=== PATIENT | male | born 1950 | race African-American/Black ===

== ENCOUNTER 2018-04-24 11:23 | Emergency (ER) | payer MEDICARE, OTHER ==
[~2018-04-24] VITALS: Ht 188 cm; Wt 113.6 kg
[~2018-04-24 11:23] MED LIST: ASPI325T6 PO; ASPIRIN 81M81 MG/TA2 PO; CEPHALEXIN500 M1 PO; GRX VITAMIN E1000 IU TP; HYZAAR 25 MG-101 TAB PO; LIPITOR20 MG PO; LOPRESSOR 550 MG/TAB PO; MULTI VITAMINS1 TAB PO; PREVAGEN PO; THE MEDICINE S200 M2 PO; TOPROL XL 50MG50 MG PO; VITAMIN B COMPL1 T16 PO; VITAMIN D1000 IU PO; VITAMIN E 400 U4001 PO; VITAMIN E1000 U/CAP PO; ZYLOPRIM 100MG100 MG PO; ZYRTEC 10MG10 MG PO
[2018-04-24 11:36] VITALS: TEMP 98.8
[2018-04-24] MEDS ORDERED: HCTZ 25MG TAB25 MG PO (12:28)
[2018-04-24 12:55] LABS: ALANINE AMINOTRANSFERASE 24 U/L (21-72); ALBUMIN 4.6 gm/dL (3.5-5.0); ALCOHOL(ethanol),MEDICAL 18 mg/dL; ALKALINE PHOSPHATASE 77 U/L (50-136); ANION GAP 15 mmol/L (7-16); AST,SGOT 40 U/L (15-37); BILIRUBIN,TOTAL 0.6 mg/dL (0.0-1.0); BLOOD UREA NITROGEN 16 mg/dL (9-20); CARBON DIOXIDE 24 mmol/L (22-30); CHLORIDE 103 mmol/L (98-107); CREATININE, serum 1.19 mg/dL (0.66-1.25); GLUCOSE 77 mg/dL (74-106); LIPASE 50 U/L (23-300); POTASSIUM 3.9 mmol/L (3.4-5.0); SODIUM 141 mmol/L (137-145); TOTAL PROTEIN 8.2 gm/dL (6.4-8.2)
[2018-04-24 13:08] LABS: ACETAMINOPHEN < 10 ug/mL (10-30); SALICYLATE < 1.0 mg/dL
[2018-04-24 13:09] LABS: BASO % 0.6 % (0.0-2.0); EOS % 0.5 % (0-4.0); GRAN # 3.2 (1.4-6.5); GRAN % 52.2 % (42.2-75.2); HEMATOCRIT 46.1 % (42.0-52.0); HEMOGLOBIN 15.5 g/dl (13.5-18.0); LYMPH # 2.5 (1.2-3.4); LYMPH % 39.9 % (20.0-51.0); MEAN CELL VOLUME 94 fl (80.0-100.0); MEAN CORPUSCULAR HEMOGLOBIN 31 pg (27.0-31.0); MEAN CORPUSCULAR HGB CONC 34 g/dl (33.0-37.0); MEAN PLATELET VOLUME 10.2 fl (7.4-10.4); MONO # 0.4 (0.1-0.6); MONO % 6.6 % (1.7-9.3); PLATELET COUNT 324 K/mm3 (130-400); RED BLOOD COUNT 4.93 M/mm3 (4.20-5.60); REDCELL DISTRIBUTION WIDTH-CV 14.3 % (11.5-14.5)
[2018-04-24 13:10] LABS: PROLACTIN 7.3 ng/mL (3.7-17.9)
[2018-04-24 13:19] LABS: COLLECTION METHOD CLEAN CATCH
[2018-04-24 13:25] LABS: TSH w REFLEX 0.763 uIU/mL (0.465-4.680)
[2018-04-24 13:30] LABS: MUCOUS Present /lpf; PH 5 (5-8); SQUAMOUS EPITHELIAL 0-2 /hpf; URINE APPEARANCE Clear; URINE BACTERIA None Seen /hpf; URINE BILIRUBIN Negative (NEGATIVE); URINE BLOOD Negative (NEGATIVE); URINE COLOR Yellow; URINE GLUCOSE Negative (NEGATIVE); URINE KETONE Trace (NEGATIVE); URINE LEUKOCYTE ESTERASE Negative (NEGATIVE); URINE NITRATE Negative (NEGATIVE); URINE PROTEIN(semi-quant) Negative (NEGATIVE); URINE RBC 0-2 /hpf; URINE UROBILINOGEN Negative (NEGATIVE)
[2018-04-24 14:05] LABS: TRICYCLIC ANTIDEPRESS URINE NEGATIVE
[2018-04-24 14:19] VITALS: BP 159/103; PULSE 75
== END 2018-04-24 14:20 | disposition home or self-care (01) ==
LOC: COL.ER 11:23
PROVIDERS: Emergency Medicine
DX: R53.1 Weakness (principal); I10 Essential (primary) hypertension; R53.81 Other malaise
CPT/HCPCS: C9113; J2405; J7030

== ENCOUNTER 2019-07-10 10:35 | Emergency (ER) | payer MEDICARE, OTHER ==
[~2019-07-10] VITALS: Ht 188 cm; Wt 101.8 kg
[~2019-07-10 10:35] MED LIST changes: +HCTZ 25MG TAB25 MG PO
[2019-07-10 10:41] VITALS: TEMP 97.3
[2019-07-10 11:07] LABS: BASO # 0.1 (0.0-0.2); EOS # 0.1 (0.0-0.7); EOS % 2.2 % (0-4.0); GRAN # 2.2 (1.4-6.5); GRAN % 44.2 % (42.2-75.2); HEMATOCRIT 42.8 % (42.0-52.0); HEMOGLOBIN 14.2 g/dl (13.5-18.0); LYMPH # 2.1 (1.2-3.4); LYMPH % 42.6 % (20.0-51.0); MEAN CELL VOLUME 99 fl (80.0-100.0); MEAN CORPUSCULAR HEMOGLOBIN 33 pg (27.0-31.0); MEAN CORPUSCULAR HGB CONC 33 g/dl (33.0-37.0); MEAN PLATELET VOLUME 9.3 fl (7.4-10.4); MONO # 0.5 (0.1-0.6); MONO % 9.8 % (1.7-9.3); PLATELET COUNT 300 K/mm3 (130-400); RED BLOOD COUNT 4.32 M/mm3 (4.20-5.60)
[2019-07-10 11:17] LABS: ALANINE AMINOTRANSFERASE 10 U/L (21-72); ALBUMIN 4.7 gm/dL (3.5-5.0); ALKALINE PHOSPHATASE 72 U/L (50-136); ANION GAP 9 mmol/L (7-16); AST,SGOT 59 U/L (15-37); BILIRUBIN,TOTAL 0.8 mg/dL (0.0-1.0); BLOOD UREA NITROGEN 14 mg/dL (9-20); C-REACTIVE PROTEIN < 0.5 mg/dL (0.0-0.9); CALCIUM 9.6 mg/dL (8.4-10.2); CARBON DIOXIDE 33 mmol/L (22-30); CHLORIDE 102 mmol/L (98-107); CREATININE, serum 1.26 (0.66-1.25); GLUCOSE 88 mg/dL (74-106); LIPASE 75 U/L (23-300); POTASSIUM 3.7 mmol/L (3.4-5.0); SODIUM 144 mmol/L (137-145); TOTAL PROTEIN 8.3 gm/dL (6.4-8.2)
[2019-07-10] MEDS ORDERED: TOPROL XL200 MG PO (11:23)
[2019-07-10] MEDS ORDERED: THE MEDICINE S200 M2 PO (11:23)
[2019-07-10 12:25] VITALS: BP 155/87; PULSE 65
== END 2019-07-10 12:27 | disposition home or self-care (01) ==
LOC: COL.ER 10:35
PROVIDERS: Family Medicine
DX: K43.6 Other and unspecified ventral hernia with obstruction, without gangrene (principal); I10 Essential (primary) hypertension; M10.9 Gout, unspecified
CPT/HCPCS: J2270; J2405; J7030; Q9967

== ENCOUNTER 2019-07-30 08:40 | Day surgery (SDC) | payer MEDICARE, OTHER ==
[2019-07-30] VITALS (7 sets, daily range): BP systolic 122–153; BP diastolic 70–91; PULSE 56–81; TEMP 97.4–98.1
[~2019-07-30] VITALS: Ht 188 cm; Wt 96.6 kg
[~2019-07-30 08:40] MED LIST changes: +TOPROL XL200 MG PO
--- NOTE | 2019-07-30 09:35 | NUR ---
TO RM AT 056- CALL LIGHT IN REACH AT BEDSIDE.
[2019-07-30] MEDS ORDERED: NORCO 325 MG-51 TAB PO (13:18)
--- NOTE | 2019-07-30 13:40 | NUR ---
TO RM 6 PER CART FROM PACU. DROWSY, BUT ANSWERS QUESTIONS COHERENTLY. AT BEDSIDE. THREE BANDAIDES OVER ABDOMENT ARE CLEAN DRY INTACT. BINDER ON OVER DRESSINGS. PATIENT BELTCHED A FEW TIME. C/O PAIN "TOLERABLE AT THIS TIME"
--- NOTE | 2019-07-30 14:00 | NUR ---
MORE AWAKE AND TALKING TO . RECEIVED WATER AND TAKING SIPS.
--- NOTE | 2019-07-30 14:15 | NUR ---
C/O PAIN INCREASING 10/26
--- NOTE | 2019-07-30 14:30 | NUR ---
C/O PAIN 10/26 RECEIVED NORCO 5MG 2 TAB RECEIVED SPRTIE AND JOSE ENRIQUEERS
--- NOTE | 2019-07-30 14:45 | NUR ---
PATIENT STATED NO CHANGE IN PAIN RECEIVED CRANBERRY JUICE.
--- NOTE | 2019-07-30 15:15 | NUR ---
ATE CRACKERS AND FINISHED JUICE, SPRITE AND ONE CUP OF WATER. AMBULATED TO BATHROOM. VOIDED AND AMBULATED BACK TO BED. OFFERED PATIENT TO LAY BACK DOWN OR HE COULD GO HOME. PATIENT STATED HE FELT LIKE GOING HOME.
--- NOTE | 2019-07-30 15:30 | NUR ---
AND PATIENT RECEIVED DISCHARGE INSTRUCTIONS AND VERBALIZED UNDERSTANDING. DISCONTINUED IV AND INT- CATHETER INTACT. ASSISTING PATIENT DRESSED.
--- NOTE | 2019-07-30 15:45 | NUR ---
AFTER GETTING INTO WC TO GO HOME, PATIENT STATED HE FELT WARM. OFFERED PATIENT TO LAY BACK DOWN AND REST A LITTLE LONGER. PATIENT STATED HE WAS OK AND WANTED TO GO HOME.
--- NOTE | 2019-07-30 16:07 | NUR ---
DISCHARGED PER WC BY NURSING STAFF TO PRIVATE CAR IN CARE OF SUZIE
== END 2019-07-30 16:09 | disposition home or self-care (01) ==
LOC: SDCO 08:40
DX: K43.6 Other and unspecified ventral hernia with obstruction, without gangrene (principal); I10 Essential (primary) hypertension; E78.00 Pure hypercholesterolemia, unspecified; Z88.8 Allergy status to other drugs, medicaments and biological substances; I25.10 Atherosclerotic heart disease of native coronary artery without angina pectoris; M10.9 Gout, unspecified
CPT/HCPCS: C1781; J0690; J1100; J1885; J2405; J2704; J3010; J7120

== ENCOUNTER 2021-04-21 17:57 | Emergency (ER) | payer MEDICARE, OTHER ==
[~2021-04-21] VITALS: Ht 188 cm; Wt 102.3 kg
[~2021-04-21 17:57] MED LIST changes: +NORCO 325 MG-51 TAB PO
[2021-04-21 18:01] VITALS: TEMP 98.1
[2021-04-21 19:46] LABS: BASO % 0.5 % (0.0-2.0); EOS # 0.1 K/mm3 (0.0-0.7); EOS % 0.7 % (0-4.0); GRAN # 5.2 K/mm3 (1.4-6.5); GRAN % 62.3 % (42.2-75.2); HEMATOCRIT 39.8 % (42.0-52.0); HEMOGLOBIN 13.5 g/dl (13.5-18.0); LYMPH # 2.4 K/mm3 (1.2-3.4); LYMPH % 28.5 % (20.0-51.0); MEAN CELL VOLUME 96 fl (80.0-100.0); MEAN CORPUSCULAR HEMOGLOBIN 33 pg (27.0-31.0); MEAN CORPUSCULAR HGB CONC 34 g/dl (33.0-37.0); MEAN PLATELET VOLUME 9.6 fl (7.4-10.4); MONO # 0.6 K/mm3 (0.1-0.6); MONO % 7.4 % (1.7-9.3); PLATELET COUNT 269 K/mm3 (130-400); RED BLOOD COUNT 4.13 M/mm3 (4.20-5.60); REDCELL DISTRIBUTION WIDTH-CV 13.3 % (11.5-14.5)
[2021-04-21 19:54] LABS: INR 1.1 (0.8-3.0); PROTHROMBIN TIME 12.7 SECONDS (9.7-12.8)
[2021-04-21 19:56] LABS: PARTIAL THROMBOPLASTIN TIME 34.8 SECONDS (26.0-37.0)
[2021-04-21 20:04] LABS: CALCIUM 9.4 mg/dL (8.4-10.2); CREATININE, serum 1.23 mg/dL (0.72-1.25); POTASSIUM 3.5 mmol/L (3.5-4.5)
[2021-04-22 05:50] VITALS: BP 131/62; PULSE 75
== END 2021-04-22 07:32 | disposition short-term general hospital (02) ==
LOC: COL.ER 17:57
PROVIDERS: Emergency Medicine
DX: S72.21XA Displaced subtrochanteric fracture of right femur, initial encounter for closed fracture (principal); I10 Essential (primary) hypertension; E78.5 Hyperlipidemia, unspecified; Z79.899 Other long term (current) drug therapy; Z20.822 Contact with and (suspected) exposure to COVID-19; Z79.01 Long term (current) use of anticoagulants; W11.XXXA Fall on and from ladder, initial encounter
CPT/HCPCS: J1170; J2405; J3010; J7030

== ENCOUNTER → 2022-01-14 | Outpatient (CLI) | payer MEDICARE, OTHER | LOC: COL.RAD 07:28 | DX: G31.84 Mild cognitive impairment of uncertain or unknown etiology (principal); R41.3 Other amnesia | CPT/HCPCS: A9575 ==